=== PATIENT | female | born 1955 | race Two or more races ===

== ENCOUNTER 2018-01-01 14:08 | Emergency (ER) | payer MEDICAID, OTHER ==
[~2018-01-01] VITALS: Ht 157.5 cm; Wt 52.6 kg
[2018-01-01 15:20] VITALS: BP 158/59
== END 2018-01-01 16:30 | disposition home or self-care (01) ==
LOC: ER 14:08
DX: M17.12 Unilateral primary osteoarthritis, left knee (principal)
CPT/HCPCS: 93971

== ENCOUNTER 2022-01-23 22:55 | Emergency (ER) | payer MEDICAID, OTHER ==
[~2022-01-23] VITALS: Ht 162.6 cm; Wt 50.8 kg
[2022-01-24] MEDS ORDERED: PEGSOL11 OR (01:59)
[2022-01-24 02:04] VITALS: BP 128/79
== END 2022-01-24 02:09 | disposition home or self-care (01) ==
LOC: ER 23:01
DX: K59.00 Constipation, unspecified (principal); Z90.710 Acquired absence of both cervix and uterus

== ENCOUNTER 2022-10-07 12:44 | Emergency (ER) | payer OTHER ==
[~2022-10-07] VITALS: Ht 157.5 cm; Wt 50.0 kg
[~2022-10-07 12:44] MED LIST: PEGSOL11 OR
[2022-10-07 14:34] VITALS: BP 133/74
[2022-10-07 15:50] LABS: Basophils # (auto) 0 10 ^3/uL (0-0.2); Eosinophils # (auto) 0 10 ^3/uL (0-0.8); Eosinophils % (auto) 0.9 % (0.0-7.0); Hematocrit 41.4 % (36.0-46.0); Hemoglobin 13.4 g/dL (12.2-16.2); Lymphocytes # (auto) 1.4 10 ^3/uL (0.4-5.4); Lymphocytes % (auto) 31.5 % (10.0-50.0); Mean Corpuscular Hemoglobin 28.5 pg (28.0-32.0); Mean Corpuscular Hgb Conc. 32.4 g/dL (32.0-36.0); Mean Corpuscular Volume 87.9 fL (80.0-100.0); Monocytes # (auto) 0.4 10 ^3/uL (0-1.3); Neutrophils # (auto) 2.7 10 ^3/uL (1.6-8.6); Neutrophils % (auto) 58.6 % (37.0-80.0); Nucleated Red Blood Cells % 0.1 %; Red Blood Cells 4.71 10^6/uL (4.0-5.20); Red Cell Distribution Width 13.9 % (11.8-14.3); White Blood Cell 4.6 10^3/uL (4.4-10.8)
[2022-10-07 16:10] LABS: BUN/Creatinine Ratio 30.8; Potassium 4.1 mmol/L (3.5-5.1)
[2022-10-07 16:11] LABS: Calcium 8.7 mg/dL (8.5-10.1)
== END 2022-10-07 17:03 | disposition home or self-care (01) ==
LOC: ER 12:44
DX: F41.8 Other specified anxiety disorders (principal); G47.00 Insomnia, unspecified; Z90.710 Acquired absence of both cervix and uterus; Z79.899 Other long term (current) drug therapy
CPT/HCPCS: 36415; 80048; 84443; 84484; 85025; 93005

== ENCOUNTER 2023-07-31 19:49 | Emergency (ER) | payer OTHER ==
[~2023-07-31] VITALS: Ht 162.6 cm; Wt 48.8 kg
[~2023-07-31 19:49] MED LIST changes: +MECL25CH38 PO
[2023-08-01] MEDS ORDERED: IBUPROFEN 400 MG TAB PO ONE
[2023-08-01 00:15] VITALS: BP 132/66; PULSE 89; RESP 16; TEMP 98.7; O2SAT 97
== END 2023-08-01 00:25 | disposition home or self-care (01) ==
LOC: ER 19:49
DX: M25.562 Pain in left knee (principal); Z90.710 Acquired absence of both cervix and uterus; Z79.899 Other long term (current) drug therapy
CPT/HCPCS: 73562; 93005; 93970